=== PATIENT | female | born 1940 | race Caucasian/White ===

== ENCOUNTER 2019-06-29 16:49 | Inpatient (IN) ==
[2019-06-29] MEDS ORDERED: Bumetanide 1 MG/4 ML VIAL IVP ONE (16:59)
[2019-06-29] MEDS ORDERED: levoFLOXacin 500 MG/100 ML 500 MG/100 ML BAG IVPB ONE (17:18)
[2019-06-29 17:33] LABS: Basophils % 0.3 %; Eosinophils # 0.6 K/mcL (0.0-0.6); Hematocrit 30.3 % (35.3-44.9); Hemoglobin 8.8 g/dL (11.5-15.4); Immature Granulocytes % 0.8 % (0-4); Lymphocytes # 2.7 K/mcL (0.6-4.6); Lymphocytes % 19.4 %; Mean Corpuscular Hemoglobin 31.2 pg (28.0-33.3); Mean Corpuscular Volume 107.4 fL (83.0-100.0); Mean Platelet Volume 10.4 fL (9.4-12.4); Monocytes # 0.6 K/mcL (0.0-1.3); Monocytes % 4.6 %; Neutrophils # 9.8 K/mcL (1.6-8.9); Platelet Count 217 K/mcL (140-400); Red Blood Count 2.82 M/mcL (3.82-4.97); Segmented Neutrophils % 70.9 %; White Blood Count 13.8 K/mcL (4.3-11.1)
[2019-06-29 17:41] LABS: Prothrombin Time 11.3 Seconds (9.4-12.1)
[2019-06-29 17:53] LABS: Alanine Aminotransferase 16 Units/L (7-52); Albumin 3.9 g/dL (3.5-5.7); Albumin/Globulin Ratio 1.3 (1.1-2.2); Alkaline Phosphatase 72 Units/L (34-104); Aspartate Amino Transferase 19 Units/L (13-39); BUN/Creatinine Ratio 16 (6-26); Bilirubin,Total 0.5 mg/dL (0.3-1.0); Blood Urea Nitrogen 23 mg/dL (8-23); Calcium 8.8 mg/dL (8.6-10.3); Carbon Dioxide 37 mEq/L (23-29); Chloride 102 mEq/L (98-107); Globulin 3.1 g/dL (2.4-3.5); Glucose 198 mg/dL (70-105); Osmolality,Calculated 303 (280-300); Sodium 142 mEq/L (136-145); Troponin I < 0.03 ng/mL (< 0.04); eGFR For African Americans 43 (> 60); eGFR For Non-African Americans 35 (> 60)
[2019-06-29] MEDS ORDERED: Ondansetron ODT 4 MG TAB.RAPDIS SL PRN (22:37)
[2019-06-29] MEDS ORDERED: Naloxone 0.4 MG/ML INJ IVP PRN (22:37)
[2019-06-29] MEDS: Ipratropium Neb 0.5 MG NEBULIZER IH SCH (23:42)
[2019-06-29] MEDS: MethylPREDNISolone 40 MG/ML VIAL IVP SCH (23:49)
[2019-06-30] MEDS: Ipratropium Neb 0.5 MG NEBULIZER IH SCH ×6 (04:49→23:41)
[2019-06-30 06:29] LABS: Hematocrit 27.5 % (35.3-44.9); Hemoglobin 8.2 g/dL (11.5-15.4); Immature Granulocytes % 1.5 % (0-4); Lymphocytes # 0.5 K/mcL (0.6-4.6); Lymphocytes % 10.3 %; Mean Corpuscular HGB Conc 29.8 g/dL (31.6-35.5); Mean Corpuscular Hemoglobin 31.3 pg (28.0-33.3); Mean Platelet Volume 10.9 fL (9.4-12.4); Monocytes % 0.6 %; Platelet Count 175 K/mcL (140-400); Red Blood Count 2.62 M/mcL (3.82-4.97); Red Cell Distribution Width 15.5 % (11.5-14.5); Segmented Neutrophils % 87.6 %; White Blood Count 5.2 K/mcL (4.3-11.1)
[2019-06-30] MEDS: MethylPREDNISolone 40 MG/ML VIAL IVP SCH ×3 (06:37→17:13)
[2019-06-30 06:53] LABS: Neutrophils # 4.6 K/mcL (1.6-8.9)
[2019-06-30 07:09] LABS: Calcium 9.3 mg/dL (8.6-10.3); Potassium 5.7 mEq/L (3.5-5.1)
[2019-06-30] MEDS ORDERED: Furosemide 20 MG TABLET PO SCH ×2 (08:00→09:00)
[2019-06-30] MEDS ORDERED: *HR* GlipiZIDE XL (24 HR) 2.5 MG TABLET PO SCH (08:00)
[2019-06-30] MEDS: Multivit/Ca/Min/Fe/FA 1 TAB TABLET PO SCH (08:28)
[2019-06-30] MEDS: Aspirin Enteric Coated 325 MG Tablet PO SCH (08:28)
[2019-06-30] MEDS: Loratadine 10 MG TABLET PO SCH (08:28)
[2019-06-30] MEDS ORDERED: POTASSIUM CHLORIDE 50 MEQ PO SCH (09:00)
[2019-06-30] MEDS ORDERED: NON-FORMULARY MEDICATION 1 EACH EACH (Oxygen 3 L) IH SCH (09:00)
[2019-06-30] MEDS ORDERED: D5% in Water 1,000 ML IVC PRN (09:46)
[2019-06-30] MEDS ORDERED: Dextrose Gel 15 GM/37.5 ML TUBE PO PRN ×2 (09:46)
[2019-06-30] MEDS ORDERED: *HR* Dextrose 50 % in Water (Vial) 50 ML VIAL IVP PRN (09:46)
[2019-06-30 11:51] LABS: ABG Base Excess 6 mEq/L (-2 to 3); ABG HCO3 32 mEq/L (21-27); ABG Oxygen Saturation 97 % (95-98); ABG PCO2 56 mmHg (35-45); ABG PH 7.37 pH Units (7.32-7.45); ABG PO2 100 mmHg (85-104); ABG TCO2 34 mEq/L (20-26); Blood Gas Modality BiLevel
[2019-06-30] MEDS: Insulin LISPRO 300 UNITS/3 ML VIAL SQ SCH ×2 (11:51→17:12)
[2019-06-30] MEDS ORDERED: Furosemide 20 MG/2 ML VIAL IVP SCH (17:00)
[2019-06-30] MEDS: *HR* Heparin 5,000 UNIT/ML VIAL SQ SCH (17:12)
[2019-06-30 17:25] LABS: Estimated Average Glucose 108 mg/dl
[2019-06-30 18:31] LABS: Bilirubin,Urine Negative (Negative); Blood,Urine Small (Negative); Clarity,Urine Clear (Clear); Color,Urine Yellow (Yellow); Glucose,Urine (UA) Normal (Normal); Ketones,Urine Negative (Negative); Leukocyte Esterase,Urine Small (Negative); Nitrite,Urine Negative (Negative); Protein,Urine Negative (Neg-Trace); Urobilinogen,Urine Normal (Normal)
[2019-06-30 18:38] LABS: Hyaline Casts,Urine Few per lpf (None-Few); Squamous Epithelial Cell,Urine Few per lpf (None-Few)
[2019-06-30 18:39] LABS: Bacteria,Urine Few per hpf (None-Few); Renal Epithelial Cells,Urine Few per hpf (None-Few)
[2019-07-01] MEDS: MethylPREDNISolone 40 MG/ML VIAL IVP SCH ×4 (00:05→16:18)
[2019-07-01] MEDS: Ipratropium Neb 0.5 MG NEBULIZER IH SCH ×4 (04:38→16:50)
[2019-07-01] MEDS: *HR* Heparin 5,000 UNIT/ML VIAL SQ SCH ×2 (05:53→16:18)
[2019-07-01 06:55] LABS: Hematocrit 25.9 % (35.3-44.9); Hemoglobin 8.1 g/dL (11.5-15.4); Mean Corpuscular HGB Conc 31.3 g/dL (31.6-35.5); Mean Corpuscular Hemoglobin 31.9 pg (28.0-33.3); Mean Platelet Volume 10.9 fL (9.4-12.4); Platelet Count 214 K/mcL (140-400); Red Blood Count 2.54 M/mcL (3.82-4.97); Red Cell Distribution Width 15.6 % (11.5-14.5); White Blood Count 8.3 K/mcL (4.3-11.1)
[2019-07-01 07:12] LABS: Calcium 9.4 mg/dL (8.6-10.3); Potassium 4.9 mEq/L (3.5-5.1)
[2019-07-01] MEDS: Insulin LISPRO 300 UNITS/3 ML VIAL SQ SCH ×5 (08:30→20:51)
[2019-07-01] MEDS: Multivit/Ca/Min/Fe/FA 1 TAB TABLET PO SCH (08:32)
[2019-07-01] MEDS: Loratadine 10 MG TABLET PO SCH (08:32)
[2019-07-01] MEDS: Aspirin Enteric Coated 325 MG Tablet PO SCH (09:40)
[2019-07-01 16:36] LABS: Adenovirus Not Detected (Not Detect); Bordetella Pertussis Not Detected (Not Detect); Chlamydophila pneumoniae Not Detected (Not Detect); Coronavirus 229E Not Detected (Not Detect); Coronavirus HKU1 Not Detected (Not Detect); Coronavirus NL63 Not Detected (Not Detect); Coronavirus OC43 Not Detected (Not Detect); Human Metapneumovirus Not Detected (Not Detect); Human Rhinovirus/Enterovirus Not Detected (Not Detect); Influenza A Subtype 2009 H1 Not Detected (Not Detect); Influenza B Not Detected (Not Detect); Mycoplasma pneumoniae Not Detected (Not Detect); Parainfluenza Virus 1 Not Detected (Not Detect); Parainfluenza Virus 2 Not Detected (Not Detect); Parainfluenza Virus 3 Not Detected (Not Detect); Parainfluenza Virus 4 Not Detected (Not Detect); Respiratory Syncytial Virus Not Detected (Not Detect)
[2019-07-01] MEDS ORDERED: levoFLOXacin 750 MG/150 ML 750 MG/150 ML BAG IVPB SCH (18:00)
[2019-07-01] MEDS: Ipratropium/Albuterol Neb 3 ML IH SCH ×2 (20:37→23:20)
[2019-07-02] MEDS: MethylPREDNISolone 40 MG/ML VIAL IVP SCH ×4 (00:45→17:05)
[2019-07-02] MEDS: Ipratropium/Albuterol Neb 3 ML IH SCH ×5 (03:39→20:54)
[2019-07-02] MEDS: *HR* Heparin 5,000 UNIT/ML VIAL SQ SCH ×2 (05:54→17:04)
[2019-07-02 06:20] LABS: Hematocrit 24.8 % (35.3-44.9); Hemoglobin 7.7 g/dL (11.5-15.4); Mean Corpuscular Hemoglobin 31.8 pg (28.0-33.3); Mean Corpuscular Volume 102.5 fL (83.0-100.0); Mean Platelet Volume 11.1 fL (9.4-12.4); Platelet Count 215 K/mcL (140-400); Red Blood Count 2.42 M/mcL (3.82-4.97); Red Cell Distribution Width 15.6 % (11.5-14.5); White Blood Count 8.1 K/mcL (4.3-11.1)
[2019-07-02 06:41] LABS: Potassium 4.7 mEq/L (3.5-5.1)
[2019-07-02] MEDS: Insulin LISPRO 300 UNITS/3 ML VIAL SQ SCH ×4 (08:16→20:03)
[2019-07-02] MEDS: Aspirin Enteric Coated 325 MG Tablet PO SCH (08:17)
[2019-07-02] MEDS: Multivit/Ca/Min/Fe/FA 1 TAB TABLET PO SCH (08:17)
[2019-07-02] MEDS: Loratadine 10 MG TABLET PO SCH (08:17)
[2019-07-02 09:12] LABS: Hematocrit 27.7 % (35.3-44.9); Hemoglobin 8.5 g/dL (11.5-15.4)
[2019-07-02 12:16] LABS: % Iron Saturation 33 % (15-50); Iron 87 mcg/dL (50-170); Transferrin 189 mg/dL (203-362)
[2019-07-02 12:41] LABS: Folate 19.8 ng/mL (3.0-16.0)
[2019-07-02 13:34] LABS: Hematocrit 26.4 % (35.3-44.9); Hemoglobin 8.1 g/dL (11.5-15.4)
[2019-07-03] MEDS: Ipratropium/Albuterol Neb 3 ML IH SCH ×5 (04:47→15:31)
[2019-07-03] MEDS: *HR* Heparin 5,000 UNIT/ML VIAL SQ SCH ×2 (05:21→16:22)
[2019-07-03] MEDS: MethylPREDNISolone 40 MG/ML VIAL IVP SCH (05:22)
[2019-07-03 06:37] LABS: Hematocrit 25.3 % (35.3-44.9); Hemoglobin 7.8 g/dL (11.5-15.4); Mean Corpuscular HGB Conc 30.8 g/dL (31.6-35.5); Mean Corpuscular Hemoglobin 31.3 pg (28.0-33.3); Mean Corpuscular Volume 101.6 fL (83.0-100.0); Mean Platelet Volume 11.1 fL (9.4-12.4); Platelet Count 238 K/mcL (140-400); Red Blood Count 2.49 M/mcL (3.82-4.97); Red Cell Distribution Width 15.7 % (11.5-14.5); White Blood Count 9.2 K/mcL (4.3-11.1)
[2019-07-03 06:54] LABS: Calcium 8.9 mg/dL (8.6-10.3); Potassium 4.6 mEq/L (3.5-5.1)
[2019-07-03] MEDS: Aspirin Enteric Coated 325 MG Tablet PO SCH (08:03)
[2019-07-03] MEDS: Multivit/Ca/Min/Fe/FA 1 TAB TABLET PO SCH (08:03)
[2019-07-03] MEDS: Insulin LISPRO 300 UNITS/3 ML VIAL SQ SCH ×3 (08:03→16:21)
[2019-07-03] MEDS: Loratadine 10 MG TABLET PO SCH (08:03)
[2019-07-03] MEDS ORDERED: Bisacodyl 10 MG RECTAL SUPPOSITORY RC PRN (08:34)
[2019-07-03 14:12] VITALS: BP 150/71
[2019-07-03] MEDS ORDERED: Ipratropium/Albuterol Neb 3 ML IH SCH ×2 (16:00)
== END 2019-07-03 16:50 | DRG 190 ==
LOC: EMEROOPIK 16:49 → INPPIK 16:49
PROVIDERS: ADMIT Internal Medicine; ATTEND Internal Medicine

== ENCOUNTER 2019-07-03 11:37 | Inpatient (IN) ==
[2019-07-03] MEDS ORDERED: Dextrose Gel 15 GM/37.5 ML TUBE PO PRN ×2 (18:13)
[2019-07-03] MEDS ORDERED: *HR* Dextrose 50 % in Water (Syg) 50 ML SYRINGE IVP PRN (18:13)
[2019-07-03] MEDS ORDERED: D5% in Water 1,000 ML IVC PRN (18:13)
[2019-07-03] MEDS: levoFLOXacin 750 MG/150 ML 750 MG/150 ML BAG IVPB SCH (18:18)
[2019-07-03] MEDS: Insulin LISPRO 300 UNITS/3 ML VIAL SQ SCH (20:25)
[2019-07-03] MEDS: Ipratropium/Albuterol Neb 3 ML IH SCH (21:47)
[2019-07-04] MEDS: Ipratropium/Albuterol Neb 3 ML IH SCH ×4 (06:12→22:03)
[2019-07-04 06:28] LABS: Basophils % 0.3 %; Eosinophils % 0.3 %; Hematocrit 26.6 % (35.3-44.9); Hemoglobin 7.9 g/dL (11.5-15.4); Immature Granulocytes % 4.2 % (0-4); Lymphocytes # 2.4 K/mcL (0.6-4.6); Mean Corpuscular HGB Conc 29.7 g/dL (31.6-35.5); Mean Corpuscular Hemoglobin 30.7 pg (28.0-33.3); Mean Corpuscular Volume 103.5 fL (83.0-100.0); Mean Platelet Volume 11.1 fL (9.4-12.4); Monocytes # 0.5 K/mcL (0.0-1.3); Neutrophils # 7.4 K/mcL (1.6-8.9); Nucleated Red Blood Cells 0.5 /100 WBC (0); Platelet Count 240 K/mcL (140-400); Red Blood Count 2.57 M/mcL (3.82-4.97); Segmented Neutrophils % 68.2 %; White Blood Count 10.8 K/mcL (4.3-11.1)
[2019-07-04 06:53] LABS: Calcium 8.5 mg/dL (8.6-10.3); Potassium 4.5 mEq/L (3.5-5.1)
[2019-07-04] MEDS: Insulin LISPRO 300 UNITS/3 ML VIAL SQ SCH ×4 (08:24→22:44)
[2019-07-04] MEDS: predniSONE 20 MG TABLET PO SCH (08:37)
[2019-07-04] MEDS: Multivit/Ca/Min/Fe/FA 1 TAB TABLET PO SCH (08:37)
[2019-07-04] MEDS: Furosemide 20 MG TABLET PO SCH (08:38)
[2019-07-04] MEDS: *HR* GlipiZIDE XL (24 HR) 2.5 MG TABLET PO SCH (08:38)
[2019-07-04] MEDS: Loratadine 10 MG TABLET PO SCH (08:38)
[2019-07-04] MEDS: Aspirin Enteric Coated 325 MG Tablet PO SCH (08:39)
[2019-07-04] MEDS ORDERED: POTASSIUM CHLORIDE 50 MEQ PO SCH (09:00)
[2019-07-04] MEDS ORDERED: NON-FORMULARY MEDICATION 1 EACH EACH (Oxygen 3 L) IH SCH (09:00)
[2019-07-05] MEDS: Ipratropium/Albuterol Neb 3 ML IH SCH ×4 (04:41→21:58)
[2019-07-05 05:36] LABS: Hematocrit 25.8 % (35.3-44.9); Hemoglobin 7.9 g/dL (11.5-15.4); Mean Corpuscular HGB Conc 30.6 g/dL (31.6-35.5); Mean Corpuscular Hemoglobin 31.2 pg (28.0-33.3); Mean Platelet Volume 10.8 fL (9.4-12.4); Platelet Count 222 K/mcL (140-400); Red Blood Count 2.53 M/mcL (3.82-4.97); Red Cell Distribution Width 15.8 % (11.5-14.5); White Blood Count 10.4 K/mcL (4.3-11.1)
[2019-07-05 05:59] LABS: Calcium 8.5 mg/dL (8.6-10.3); Potassium 4.7 mEq/L (3.5-5.1)
[2019-07-05] MEDS: Insulin LISPRO 300 UNITS/3 ML VIAL SQ SCH ×4 (07:51→20:42)
[2019-07-05] MEDS ORDERED: *HR* Dextrose 50 % in Water (Vial) 50 ML VIAL IVP PRN (08:15)
[2019-07-05] MEDS: Furosemide 20 MG TABLET PO SCH (09:10)
[2019-07-05] MEDS: predniSONE 20 MG TABLET PO SCH (09:10)
[2019-07-05] MEDS: Multivit/Ca/Min/Fe/FA 1 TAB TABLET PO SCH (09:11)
[2019-07-05] MEDS: *HR* GlipiZIDE XL (24 HR) 2.5 MG TABLET PO SCH (09:11)
[2019-07-05] MEDS: Loratadine 10 MG TABLET PO SCH (09:11)
[2019-07-05] MEDS: Aspirin Enteric Coated 325 MG Tablet PO SCH (09:11)
[2019-07-05] MEDS: levoFLOXacin 750 MG/150 ML 750 MG/150 ML BAG IVPB SCH (18:07)
[2019-07-06] MEDS: Ipratropium/Albuterol Neb 3 ML IH SCH ×4 (04:00→21:36)
[2019-07-06 07:42] LABS: Hematocrit 26.5 % (35.3-44.9); Hemoglobin 8.2 g/dL (11.5-15.4); Mean Corpuscular HGB Conc 30.9 g/dL (31.6-35.5); Mean Corpuscular Hemoglobin 31.4 pg (28.0-33.3); Mean Corpuscular Volume 101.5 fL (83.0-100.0); Mean Platelet Volume 10.2 fL (9.4-12.4); Platelet Count 208 K/mcL (140-400); Red Blood Count 2.61 M/mcL (3.82-4.97); Red Cell Distribution Width 16.2 % (11.5-14.5); White Blood Count 10.8 K/mcL (4.3-11.1)
[2019-07-06 07:56] LABS: Calcium 8.6 mg/dL (8.6-10.3); Potassium 4.3 mEq/L (3.5-5.1)
[2019-07-06] MEDS: Insulin LISPRO 300 UNITS/3 ML VIAL SQ SCH ×4 (08:15→21:07)
[2019-07-06] MEDS: predniSONE 20 MG TABLET PO SCH (08:51)
[2019-07-06] MEDS: Loratadine 10 MG TABLET PO SCH (08:51)
[2019-07-06] MEDS: *HR* GlipiZIDE XL (24 HR) 2.5 MG TABLET PO SCH (08:51)
[2019-07-06] MEDS: Furosemide 20 MG TABLET PO SCH (08:51)
[2019-07-06] MEDS: Multivit/Ca/Min/Fe/FA 1 TAB TABLET PO SCH (08:51)
[2019-07-06] MEDS: Aspirin Enteric Coated 325 MG Tablet PO SCH (08:52)
[2019-07-07] MEDS: Ipratropium/Albuterol Neb 3 ML IH SCH ×4 (04:27→22:39)
[2019-07-07] MEDS: Aspirin Enteric Coated 325 MG Tablet PO SCH (09:34)
[2019-07-07] MEDS: Insulin LISPRO 300 UNITS/3 ML VIAL SQ SCH ×4 (09:34→22:01)
[2019-07-07] MEDS: predniSONE 20 MG TABLET PO SCH (09:35)
[2019-07-07] MEDS: Furosemide 20 MG TABLET PO SCH (09:35)
[2019-07-07] MEDS: Multivit/Ca/Min/Fe/FA 1 TAB TABLET PO SCH (09:35)
[2019-07-07] MEDS: *HR* GlipiZIDE XL (24 HR) 2.5 MG TABLET PO SCH (09:35)
[2019-07-07] MEDS: Loratadine 10 MG TABLET PO SCH (09:35)
[2019-07-08] MEDS: Ipratropium/Albuterol Neb 3 ML IH SCH ×5 (04:21→21:46)
[2019-07-08 07:58] LABS: Hematocrit 26.9 % (35.3-44.9); Hemoglobin 8.2 g/dL (11.5-15.4); Mean Corpuscular HGB Conc 30.5 g/dL (31.6-35.5); Mean Corpuscular Hemoglobin 31.3 pg (28.0-33.3); Mean Corpuscular Volume 102.7 fL (83.0-100.0); Mean Platelet Volume 11.2 fL (9.4-12.4); Platelet Count 185 K/mcL (140-400); Red Blood Count 2.62 M/mcL (3.82-4.97); Red Cell Distribution Width 16.6 % (11.5-14.5); White Blood Count 13.8 K/mcL (4.3-11.1)
[2019-07-08] MEDS: predniSONE 10 MG TABLET PO SCH (08:12)
[2019-07-08] MEDS: Loratadine 10 MG TABLET PO SCH (08:12)
[2019-07-08] MEDS: Furosemide 20 MG TABLET PO SCH (08:12)
[2019-07-08] MEDS: Aspirin Enteric Coated 325 MG Tablet PO SCH (08:12)
[2019-07-08] MEDS: *HR* GlipiZIDE XL (24 HR) 2.5 MG TABLET PO SCH (08:12)
[2019-07-08] MEDS: Multivit/Ca/Min/Fe/FA 1 TAB TABLET PO SCH (08:12)
[2019-07-08 08:19] LABS: Calcium 8.5 mg/dL (8.6-10.3); Potassium 4.2 mEq/L (3.5-5.1)
[2019-07-08] MEDS: Insulin LISPRO 300 UNITS/3 ML VIAL SQ SCH ×3 (18:10→20:37)
[2019-07-09] MEDS: Ipratropium/Albuterol Neb 3 ML IH SCH ×4 (04:46→22:10)
[2019-07-09] MEDS: Furosemide 20 MG TABLET PO SCH (09:36)
[2019-07-09] MEDS: Multivit/Ca/Min/Fe/FA 1 TAB TABLET PO SCH (09:36)
[2019-07-09] MEDS: Loratadine 10 MG TABLET PO SCH (09:36)
[2019-07-09] MEDS: *HR* GlipiZIDE XL (24 HR) 2.5 MG TABLET PO SCH (09:36)
[2019-07-09] MEDS: predniSONE 20 MG TABLET PO SCH (09:36)
[2019-07-09] MEDS: Insulin LISPRO 300 UNITS/3 ML VIAL SQ SCH (09:37)
[2019-07-09] MEDS: Aspirin Enteric Coated 325 MG Tablet PO SCH (09:37)
[2019-07-09] MEDS: predniSONE 10 MG TABLET PO SCH (17:58)
[2019-07-10] MEDS: Ipratropium/Albuterol Neb 3 ML IH SCH ×2 (04:48→10:49)
[2019-07-10 05:50] VITALS: BP 150/68
[2019-07-10 07:45] LABS: Hematocrit 26.8 % (35.3-44.9); Hemoglobin 8.2 g/dL (11.5-15.4); Mean Corpuscular HGB Conc 30.6 g/dL (31.6-35.5); Mean Corpuscular Hemoglobin 31.5 pg (28.0-33.3); Mean Corpuscular Volume 103.1 fL (83.0-100.0); Mean Platelet Volume 11.4 fL (9.4-12.4); Platelet Count 162 K/mcL (140-400); Red Cell Distribution Width 16.6 % (11.5-14.5)
[2019-07-10 07:47] LABS: Calcium 8.5 mg/dL (8.6-10.3)
[2019-07-10] MEDS: Furosemide 20 MG TABLET PO SCH (10:44)
[2019-07-10] MEDS: Multivit/Ca/Min/Fe/FA 1 TAB TABLET PO SCH (10:44)
[2019-07-10] MEDS: predniSONE 20 MG TABLET PO SCH (10:44)
[2019-07-10] MEDS: *HR* GlipiZIDE XL (24 HR) 2.5 MG TABLET PO SCH (10:44)
[2019-07-10] MEDS: Aspirin Enteric Coated 325 MG Tablet PO SCH (10:44)
[2019-07-10] MEDS: Loratadine 10 MG TABLET PO SCH (10:44)
== END 2019-07-10 16:00 | disposition home or self-care (01) ==
LOC: INPPIK 16:52
PROVIDERS: ADMIT Family Medicine; ATTEND Family Medicine